=== PATIENT | female | born 1970 | race Caucasian/White ===

== ENCOUNTER 2016-11-04 09:10 | Day surgery (SDC) | payer BC ==
[2016-11-03 09:13] VITALS: Ht 170.2 cm; Wt 94.5 kg
[2016-11-04] VITALS (16 sets, daily range): BP systolic 100–119; BP diastolic 52–67; PULSE 74–87; RESP 16–23
[~2016-11-04] VITALS: Ht 170.2 cm; Wt 94.5 kg
--- NOTE | 2016-11-04 06:46 | HPN ---
Date/Time of Note Date/Time of Note DATE: 11/04/16 TIME: 06:46 Interval H&P Admission Note Pt. seen H&P reviewed: No system changes INGRID VILLA MD Nov 04, 2016 06:46
[~2016-11-04 09:10] MED LIST: ADDE30 PO; ARIP15TA2 PO; BUPIVACAINE 0.5% (SDV) 30 ML, morphine SULFATE (PF) 8 MG, EPINEPHrine 0.3 MG, KETOROLAC... IRR SCH; CEFAZOLIN 2 GM/50 ML (PMX) 50 ML IVPB ONE; DEXAMETHASONE 1 MG TAB PO ONE; FLUO40CA10 PO; GABAPENTIN 300 MG CAP PO ONE; TRANEXAMIC ACID 1,000 MG in SOD CHLORIDE 0.9% 100 ML IVPB ONE; traMADol 50 MG TAB PO ONE
[2016-11-04] MEDS ORDERED: AMPH20CA PO (09:59)
[2016-11-04] MEDS ORDERED: CHOL10009 PO (10:01)
[2016-11-04] MEDS ORDERED: ROPIVACAINE 0.5 % 30 ML VIAL ONE (12:02)
[2016-11-04] MEDS ORDERED: LIDOCAINE 2% (SDV) 5 ML INJ ONE (12:02)
[2016-11-04] MEDS ORDERED: PROPOFOL 20 ML ONE (12:02)
[2016-11-04] MEDS ORDERED: ONDANSETRON 4 MG INJ IV PRN (12:30)
[2016-11-04] MEDS ORDERED: hydrALAzine 20 MG INJ IV PRN (12:30)
[2016-11-04] MEDS ORDERED: OXYCODONE/ACETAMINOPHEN (5/325) TAB PO PRN ×2 (12:30)
[2016-11-04] MEDS ORDERED: EPHEDrine SULFATE 50 MG/5 ML SYG IV PRN (12:30)
[2016-11-04] MEDS ORDERED: FENTAnyl 50 MCG/ML VIAL IV PRN ×3 (12:30)
[2016-11-04] MEDS ORDERED: MEPERIDINE 25 MG INJ IV PRN (12:30)
[2016-11-04] MEDS ORDERED: DIPHENHYDRAMINE 50 MG INJ IV PRN (12:30)
[2016-11-04] MEDS ORDERED: MIDAZOLAM 1 MG/ML 2 ML INJ IV PRN (12:30)
[2016-11-04] MEDS ORDERED: LABETALOL HCL 20MG INJ IV PRN (12:30)
[2016-11-04] MEDS ORDERED: HYDROmorphONE (0.2 MG/ML) 10ML SYG IV PRN ×2 (12:30)
[2016-11-04] MEDS ORDERED: METOCLOPRAMIDE 10 MG INJ IV PRN (12:30)
[2016-11-04] MEDS ORDERED: CA CHLORIDE 10% 10 ML SYRINGE ONE (12:31)
[2016-11-04] MEDS ORDERED: BUPIVACAINE 0.5%/EPI (SDV) 10 ML INJ ONE (12:31)
[2016-11-04] MEDS ORDERED: THROMBIN 5000 UNIT VIAL ONE (12:31)
[2016-11-04] MEDS ORDERED: CEFAZOLIN 1 GM INJ ONE (13:41)
[2016-11-04] MEDS ORDERED: METOCLOPRAMIDE 10 MG INJ ONE (13:43)
[2016-11-04] MEDS ORDERED: ONDANSETRON 4 MG INJ ONE (13:43)
[2016-11-04] MEDS ORDERED: POLYMYXIN/BACITRACIN 1L IRRIG IRR ONE (14:50)
--- NOTE | 2016-11-04 14:59 | PDOCDIS ---
Discharge Instructions DIAGNOSIS Discharge Diagnosis Recurrent instability of the right shoulder CONDITION Patient Condition: Good HOME CARE INSTRUCTIONS: Diet Instructions: Regular ACTIVITY: Activity Restrictions: Slowly Increase Activity Keep Limb Elevated Bathing Restrictions: Shower FOLLOW UP/APPOINTMENTS Follow-up Plan 2 weeks SCHOOL/WORK RELEASE May return to School/Work with: With Restrictions School/Work Release Comment: Sling use for 4 weeks with 5 pounds tabletop maximum lifting INGRID VILLA MD Nov 04, 2016 14:59
--- NOTE | 2016-11-04 15:04 | OPR ---
Date/Time of Note Date/Time of Note DATE: 11/04/16 TIME: 15:00 Operative Report Procedure Date: Nov 04, 2016 Preoperative Diagnosis Right shoulder instability with glenoid deficit Postoperative Diagnosis Right shoulder instability with glenoid deficit Operation Performed Right open shoulder Latarjet procedure with allograft tibial tissue Surgeon: INGRID VILLA MD Felled Seam Operator: HESHAM MARTELL MD Anesthesia Type: general Estimated Blood Loss: 10 - 50 ml's Transfusion Required: no Complications: no Pt Condition Post Procedure: stable Disposition: PACU Procedure Description REAL ESTATE SALES ASSOCIATE SURGEON: Hesham Martell MD was asked to be present for this case at my request. Assistance was necessary as a result of the highly technical nature of this operation. When performing an open total shoulder replacement, it is critical to have a trained insurance account assistant who is an expert in handling the extremity and assisting the surgeon in tasks such as suture management and knot- tying techniques as well as implants. This assistance cannot be performed by a satellite tv technician installer, as it is considered an integral part of the procedure and the insurance account assistant should be compensated for their time. PROCEDURE IN DETAIL: Following the administration of general anesthesia supplemented with a peripheral nerve block for postoperative pain control, the patient was examined under anesthesia. Examination of the shoulder revealed very significant s The arm was taken through a range of motion and noted to have 2+ anterior and 1+ anterior instability with the humeral head being slightly anteriorly position. Sterile prep and drape was then undertaken and a deltopectoral incision was then undertaken exposing the conjoined tendon and the conjoined was retracted medially and the subscapularis was identified. The subscapularis was then incised from medial to lateral and elevated off the capsule. Capsulotomy was then performed in the lateral portion of the capsule was then sutured and prepared for closure later. The humeral head was then retracted in the anterior inferior glenoid identified. The medial capsule was excised in the area of the bony glenoid deficit was then identified. Using the preprepared allograft tibial reconstruction tissue, the 2 guidewires were then inserted into the glenoid. The guidewires were then drilled and 2 fully threaded cancellus screws were then placed into the glenoid with the graft in place. Good reconstruction of the anterior glenoid was then completed. Range of motion at this point revealed no significant instability. The graft was positioned appropriately at the edge of the joint. The joint was then thoroughly irrigated, the deep tissues were approximated using #1 suture followed by closure of the deep layer using 2-0 Monocryl. The skin was closed using 4-0 Monocryl suture, and a Prenio dressing. An Ultrasling was then applied. The patient was awakened and transported to the recovery room in stable condition. Estimated blood loss for this procedure was 50 cc. INGRID VILLA MD Nov 04, 2016 15:04
[2016-11-04] MEDS: HYDROmorphONE (0.2 MG/ML) 10ML SYG IV PRN ×2 (15:28→15:41)
== END 2016-11-04 17:25 | disposition home or self-care (01) ==
LOC: SDS 09:10
PROVIDERS: ATTEND Orthopaedic Surgery
DX: M25.311 Other instability, right shoulder (principal); I10 Essential (primary) hypertension; E78.5 Hyperlipidemia, unspecified; J45.909 Unspecified asthma, uncomplicated; F17.200 Nicotine dependence, unspecified, uncomplicated; F20.9 Schizophrenia, unspecified
CPT/HCPCS: 23462; 84703; 86999; C1713; J0171; J0690; J0735; J1170; J1885; J2175; J2274; J2405; J2765; J2795; J3370; Z7512; Z7610